=== PATIENT | male | born 1965 | race Caucasian/White ===

== ENCOUNTER 2018-03-03 21:49 | Emergency (ER) | payer OTHER ==
[~2018-03-03] VITALS: Ht 182.9 cm; Wt 100.0 kg
[2018-03-03] MEDS ORDERED: PLEASE ENTER HEIGHT AND WEIGHT MC SCH (22:00)
[2018-03-03] MEDS ORDERED: PLEASE ENTER ALLERGIES MC SCH (22:00)
[2018-03-03] MEDS ORDERED: LEVETIRACETAM 1,000 MG in SODIUM CHLORIDE 0.9% 100 ML IV ONE (22:00)
[2018-03-03 22:03] LABS: BASOPHILS # (AUTO) 0.03 x10^3/uL (0-0.1); BASOPHILS % (AUTO) 0 % (0-1); EOSINOPHILS # (AUTO) 0.06 x10^3/uL (0-0.4); EOSINOPHILS % (AUTO) 1 % (1-7); LYMPHOCYTES # (AUTO) 1.09 x10^3/uL (1-3.4); LYMPHOCYTES % (AUTO) 8 % (22-44); MD NO; MEAN CORPUSCULAR HEMOGLOBIN 32.3 pg (27.5-34.5); MEAN CORPUSCULAR HGB CONC 34.2 g/dL (33.2-36.2); MEAN CORPUSCULAR VOLUME 94.3 fL (81-97); MEAN PLATELET VOLUME 8.2 fL (7.4-10.4); MONOCYTES # (AUTO) 0.82 x10^3/uL (0.2-0.8); MONOCYTES % (AUTO) 6 % (2-9); NEUTROPHILS # (AUTO) 11.39 x10^3/uL (1.8-6.8); NEUTROPHILS % (AUTO) 85 % (42-75); PLATELET COUNT 331 x10^3/uL (130-400); RED BLOOD COUNT 4.98 x10^6/uL (4.38-5.82); RED CELL DISTRIBUTION WIDTH 13.4 % (9.4-14.8)
[2018-03-03 22:16] LABS: ALANINE AMINOTRANSFERASE 27 U/L (12-78); ALBUMIN 4.3 g/dL (3.4-5.0); ANION GAP 9 mmol/L (5-15); CHLORIDE 106 mmol/L (98-107); CREATININE 0.97 mg/dL (0.7-1.3)
[2018-03-03 22:18] LABS: ALKALINE PHOSPHATASE 82 U/L (45-117); BILIRUBIN,TOTAL 1.1 mg/dL (0.2-1.0); TOTAL PROTEIN 7.6 g/dL (6.4-8.2)
[2018-03-03 23:00] VITALS: BP 138/95
== END 2018-03-03 23:27 | disposition home or self-care (01) ==
LOC: ED 23:00
DX: G40.409 Other generalized epilepsy and epileptic syndromes, not intractable, without status epilepticus (principal); Z72.9 Problem related to lifestyle, unspecified; F15.10 Other stimulant abuse, uncomplicated; F10.10 Alcohol abuse, uncomplicated; I10 Essential (primary) hypertension
CPT/HCPCS: 36415; 80053; 80307; 85025; 93005; 96365; 99284; J1953

== ENCOUNTER 2019-06-17 03:08 | Emergency (ER) | payer SELFPAY ==
[2019-06-17] MEDS ORDERED: PLEASE ENTER ALLERGIES MC SCH (03:30)
[2019-06-17] MEDS ORDERED: SODIUM CHLORIDE FLUSH 10ML SYR IVF ONE (03:30)
[2019-06-17] MEDS ORDERED: SODIUM CHLORIDE 0.9% 1,000ML IVBOLUS ONE (03:30)
[2019-06-17] MEDS ORDERED: LORazepam 2 MG/ML, 1ML IVPush ONE (03:30)
[2019-06-17 03:36] LABS: BASOPHILS # (AUTO) 0.07 x10^3/uL (0-0.1); BASOPHILS % (AUTO) 1 % (0-1); EOSINOPHILS # (AUTO) 0.27 x10^3/uL (0-0.4); EOSINOPHILS % (AUTO) 2 % (1-7); LYMPHOCYTES # (AUTO) 2.17 x10^3/uL (1-3.4); LYMPHOCYTES % (AUTO) 14 % (22-44); MD NO; MEAN CORPUSCULAR HEMOGLOBIN 31.7 pg (27.5-34.5); MEAN CORPUSCULAR VOLUME 96.1 fL (81-97); MONOCYTES # (AUTO) 0.88 x10^3/uL (0.2-0.8); MONOCYTES % (AUTO) 6 % (2-9); NEUTROPHILS # (AUTO) 12.55 x10^3/uL (1.8-6.8); NEUTROPHILS % (AUTO) 79 % (42-75); PLATELET COUNT 433 x10^3/uL (130-400); RED CELL DISTRIBUTION WIDTH 14.5 % (9.4-14.8)
[2019-06-17 03:45] LABS: ALANINE AMINOTRANSFERASE 26 U/L (12-78); ALBUMIN 4.2 g/dL (3.4-5.0); ANION GAP 22 mmol/L (5-15); CALCIUM 8.7 mg/dL (8.5-10.1); CHLORIDE 105 mmol/L (98-107); CREATININE 1.15 mg/dL (0.7-1.3); SALICYLATE LEVEL 4.5 mg/dL (2.8-20.0)
[2019-06-17 03:48] LABS: ALKALINE PHOSPHATASE 143 U/L (45-117); BILIRUBIN,TOTAL 0.9 mg/dL (0.2-1.0)
[2019-06-17] MEDS ORDERED: LORazepam 2 MG/ML, 1ML ONE (03:52)
--- NOTE | 2019-06-17 04:21 | NUR ---
Patient brought in by EMS, patient was found down at the [facility] in [place]. EMS received report that patient had a 5 second seizure. En route patient became more alert, but was never able to answer questions clearly. At bedside patient able to state first name, unclearly. Patient responded innappropriately to most questions with grunts. Patient transferred into [facility] without event. As Rn was getting patient attached to the monitor the provider arrived at the bedside. Patient yelled for a moment, became bright red and arms extended. Patient attached to a monitor, SpO2 around 40%. Provider provided jaw thrust and RN provided suction and oxygen maxed out. 4 mg of midazolam was administered by paramedics at bedside. patient became unconscious soon after, oxygen via nasal cannula replaced with simple facemask. Orders placed by provider, RN placed pads on rails for seizure precautions. Radiology central sterile supply technician to bedside, patient transported out of room for computed tomography scan of the head. On return RN returned to the bedside, adminstered iv fluid bolus and medication. Patient's straight catheterized for urine drug sample and hand carried to laboratory. Now waiting for CT image read, blood work and urine drug screen to result.
[2019-06-17 04:34] LABS: AMPHETAMINE SCREEN, URINE Positive (Negative); BARBITURATE SCREEN, URINE Negative (Negative); BENZODIAZEPINE SCREEN, URINE Positive (Negative); CANNABINOID SCREEN, URINE Negative (Negative); COCAINE SCREEN, URINE Negative (Negative); METHADONE SCREEN, URINE Negative (Negative); OPIATE SCREEN, URINE Negative (Negative)
--- NOTE | 2019-06-17 06:06 | NUR ---
Patient no new event, still unconsciousness, withdraws from pain. Vitals remain stable. Patient oxygen requirements improving, titrated down to 6 liters per minute. Awaiting to metabolize.
[2019-06-17 06:53] VITALS: BP 120/76
--- NOTE | 2019-06-17 07:02 | NUR ---
REPORT RECIEVED, ASSUMED CARE OF PT. PT RESTING ON GURNEY, AWAKES TO VERBAL STIM. PT STATES NAME, . PT AOX4. DISCUSSED DC WITH PT.
--- NOTE | 2019-06-17 07:32 | NUR ---
PT ASKING THIS RN IF HE HAD A SEIZURE D/T ETOH INTAKE, PT NEGATIVE PHANI. WHEN ASKED IF HE HAS HAD SEIZURES BEFORE, PT STATES HE THINKS HE HASTAKEN KEKEVINRA IN THE PAST, HAS NOT BEEN ON THE MEDICATION FOR SEVERAL WEEKS. REGISTRATION GIVEN PT NAME AND . WILL HOLD OFF ON DC AT THIS TIME TO ATTEMPT TO LOOK AT PAST RECORDS. STARCH TREATING ASSISTANT AWARE
--- NOTE | 2019-06-17 08:24 | NUR ---
PT NOTED NOT IN RM AT THIS TIME. SWEATER IN RM HOWEVER ALL OTHER BELONGINGS NOT IN RM. PT WITH PIV X2 IN, APPEARS PT ELOPED, MAY HAVE GONE OUTSIDE TO SMOKE. SECURITY CALLED TO HELP LOCATE PT IF JUST OUTSIDE
--- NOTE | 2019-06-17 09:28 | NUR ---
CATALYST OPERATOR: DEANNE DISPATCH NOTIFIED OF PT LEAVING WITH PIV IN PLACE.
== END 2019-06-17 08:59 | disposition home or self-care (01) ==
LOC: EDBD → MERGE 03:08 → ED 08:53
DX: G40.409 Other generalized epilepsy and epileptic syndromes, not intractable, without status epilepticus (principal); F15.129 Other stimulant abuse with intoxication, unspecified; Z72.9 Problem related to lifestyle, unspecified; R00.0 Tachycardia, unspecified
CPT/HCPCS: 36415; 70450; 71045; 80053; 80307; 85025; 93005; 96361; 96374; 99285; J2060; J7030

== ENCOUNTER 2019-06-17 12:54 | Emergency (ER) | payer SELFPAY ==
[~2019-06-17] VITALS: Ht 182.9 cm; Wt 87.7 kg
[2019-06-17 12:57] VITALS: BP 120/90
== END 2019-06-17 16:18 | disposition home or self-care (01) ==
LOC: ED 13:54
DX: S50.01XA Contusion of right elbow, initial encounter (principal); M25.511 Pain in right shoulder; G40.309 Generalized idiopathic epilepsy and epileptic syndromes, not intractable, without status epilepticus; K21.9 Gastro-esophageal reflux disease without esophagitis; I10 Essential (primary) hypertension; Z76.0 Encounter for issue of repeat prescription; X58.XXXA Exposure to other specified factors, initial encounter; Y93.89 Activity, other specified; Y92.89 Other specified places as the place of occurrence of the external cause; Y99.8 Other external cause status
CPT/HCPCS: 93005; 99284

== ENCOUNTER 2019-08-04 09:07 | Emergency (ER) | payer OTHER ==
[~2019-08-04] VITALS: Ht 182.9 cm; Wt 88.9 kg
--- NOTE | 2019-08-04 09:45 | NUR ---
PT REPSONSIVE TO PAINFUL STIMULI, COMPLIANT WITH ROLLING TO SIDE TO SLEEP IN RECOVERY POSITION. FRIEND AT BEDSIDE, PT CONNECTED TO FOOD SAFETY FIELD SPECIALIST, BP CUFF AND O2. EYES CLOSED, RESPIRATIONS EVEN AND UNLABORED, NO SIGNS OF DISTRESS. WILL CONTINUE TO MONITOR.
[2019-08-04 10:26] LABS: BASOPHILS # (AUTO) 0.04 x10^3/uL (0-0.1); BASOPHILS % (AUTO) 1 % (0-1); EOSINOPHILS # (AUTO) 0.03 x10^3/uL (0-0.4); EOSINOPHILS % (AUTO) 1 % (1-7); LYMPHOCYTES # (AUTO) 0.69 x10^3/uL (1-3.4); LYMPHOCYTES % (AUTO) 10 % (22-44); MD NO; MEAN CORPUSCULAR HEMOGLOBIN 32.8 pg (27.5-34.5); MEAN CORPUSCULAR HGB CONC 33.9 g/dL (33.2-36.2); MEAN CORPUSCULAR VOLUME 96.7 fL (81-97); MEAN PLATELET VOLUME 7.2 fL (7.4-10.4); MONOCYTES # (AUTO) 0.36 x10^3/uL (0.2-0.8); MONOCYTES % (AUTO) 5 % (2-9); NEUTROPHILS # (AUTO) 5.94 x10^3/uL (1.8-6.8); NEUTROPHILS % (AUTO) 84 % (42-75); PLATELET COUNT 283 x10^3/uL (130-400); RED BLOOD COUNT 3.86 x10^6/uL (4.38-5.82); RED CELL DISTRIBUTION WIDTH 16.8 % (9.4-14.8)
[2019-08-04 10:36] LABS: ALANINE AMINOTRANSFERASE 21 U/L (12-78); ALBUMIN 3.2 g/dL (3.4-5.0); ANION GAP 10 mmol/L (5-15); CALCIUM 7.9 mg/dL (8.5-10.1); CHLORIDE 108 mmol/L (98-107); CREATININE 0.58 mg/dL (0.7-1.3)
[2019-08-04 10:38] LABS: ALKALINE PHOSPHATASE 124 U/L (45-117); BILIRUBIN,TOTAL 0.5 mg/dL (0.2-1.0); TOTAL PROTEIN 6.6 g/dL (6.4-8.2)
--- NOTE | 2019-08-04 10:49 | NUR ---
PT TO IMAGING.
[2019-08-04 11:26] LABS: AMPHETAMINE SCREEN, URINE Negative (Negative); BARBITURATE SCREEN, URINE Negative (Negative); BENZODIAZEPINE SCREEN, URINE Positive (Negative); CANNABINOID SCREEN, URINE Negative (Negative); COCAINE SCREEN, URINE Negative (Negative); METHADONE SCREEN, URINE Negative (Negative); OPIATE SCREEN, URINE Negative (Negative)
--- NOTE | 2019-08-04 11:52 | NUR ---
PT RESPONSIVE TO PAINFUL STIMULI, RESPIRATIONS EVEN AND UNLABORED, SNORING HEARD.
--- NOTE | 2019-08-04 12:31 | NUR ---
TASK RN: ATTEMPTED TO ROUSE PATIENT FOR ROAD TEST- PATIENT STILL QUITE DROWSY. ONLY RESPONSIVE TO PAINFUL STIMULI, BUT PROTECTING AIRWAY W/OUT DIFFICULTY & VSS (UNABLE TO DISCHARGE AT THIS TIME)
--- NOTE | 2019-08-04 13:22 | NUR ---
BREAK NOTE FOR RN: PT LAYING BACK IN BED WITH EYES CLOSED. RESPIRATIONS EVEN AND UNLABORED ON RA. SIDE RAILS UP. NAD NOTED AT THIS TIME.
--- NOTE | 2019-08-04 13:58 | NUR ---
BREAK NOTE: PT ASKS FOR SECOND BLANKET. NAD NOTED AT THIS TIME.
[2019-08-04 14:08] VITALS: BP 125/75
== END 2019-08-04 14:42 | disposition home or self-care (01) ==
LOC: ED 09:57
DX: F10.121 Alcohol abuse with intoxication delirium (principal); Z59.0 Homelessness; Y90.9 Presence of alcohol in blood, level not specified
CPT/HCPCS: 36415; 70450; 80053; 80307; 85025; 99285

== ENCOUNTER 2020-01-04 03:37 | Inpatient (IN) | payer MEDICAID, OTHER ==
[~2020-01-04] VITALS: Ht 182.9 cm; Wt 72.0 kg
--- NOTE | 2020-01-04 03:46 | NUR ---
WARM BLANKETS AND SPRITE GIVEN TO PT.
--- NOTE | 2020-01-04 04:04 | NUR ---
PT TO CT VIA WHEELCHAIR, ALREADY HAD X RAY. INTOXICATED BUT COOPERATIVE, FOLLOWS COMMANDS, A AND O TIMES 3
--- NOTE | 2020-01-04 04:15 | NUR ---
PT EATING COOKIES AND DRINKING SPRITE, INTOXICATED BUT QUITE PLEASANT
[2020-01-04] MEDS ORDERED: SODIUM CHLORIDE FLUSH 10ML SYR IVF ONE (05:00)
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
--- NOTE | 2020-01-04 05:05 | NUR ---
TO BART, HOB 30 DEGREES, NEURO INTACT, DENIES HEADACHE CURRENTLY
--- NOTE | 2020-01-04 05:10 | NUR ---
PATIENT MOVED TO ROOM. PER RADIOLOGY, HE HAS A SUBDURAL HEMATOMA. HE CURRENTLY DENIES ANY COMPLAINTS. NEURO INTACT. WILL CONTINUE TO MONITOR.
[2020-01-04 05:46] LABS: BASOPHILS # (AUTO) 0.04 x10^3/uL (0-0.1); BASOPHILS % (AUTO) 0 % (0-1); EOSINOPHILS # (AUTO) 0.01 x10^3/uL (0-0.4); EOSINOPHILS % (AUTO) 0 % (1-7); LYMPHOCYTES # (AUTO) 0.97 x10^3/uL (1-3.4); LYMPHOCYTES % (AUTO) 9 % (22-44); MD NO; MEAN CORPUSCULAR HEMOGLOBIN 31.2 pg (27.5-34.5); MEAN CORPUSCULAR HGB CONC 31.7 g/dL (33.2-36.2); MEAN PLATELET VOLUME 7.3 fL (7.4-10.4); MONOCYTES # (AUTO) 0.47 x10^3/uL (0.2-0.8); MONOCYTES % (AUTO) 5 % (2-9); NEUTROPHILS # (AUTO) 9.07 x10^3/uL (1.8-6.8); NEUTROPHILS % (AUTO) 86 % (42-75); PLATELET COUNT 472 x10^3/uL (130-400); RED BLOOD COUNT 3.86 x10^6/uL (4.38-5.82); RED CELL DISTRIBUTION WIDTH 15.6 % (9.4-14.8)
[2020-01-04 05:48] LABS: ALANINE AMINOTRANSFERASE 32 U/L (12-78); ALBUMIN 3.6 g/dL (3.4-5.0); ANION GAP 7 mmol/L (5-15); CHLORIDE 110 mmol/L (98-107); CREATININE 0.59 mg/dL (0.7-1.3)
[2020-01-04 05:50] LABS: ALKALINE PHOSPHATASE 110 U/L (45-117); BILIRUBIN,TOTAL 0.2 mg/dL (0.2-1.0); TOTAL PROTEIN 7.3 g/dL (6.4-8.2)
[2020-01-04 05:51] LABS: INTERNATIONAL NORMALIZED RATIO 1.04 (0.93-1.1); PROTHROMBIN TIME 10.7 Seconds (9.6-11.5)
--- NOTE | 2020-01-04 06:50 | NUR ---
REPORT FROM KENNETH. DANELLE JACOBS.
--- NOTE | 2020-01-04 06:58 | NUR ---
PATIENT IN BED, RAILS UP. WAKES EASILY AND STATES NO PAIN THEN BACK TO SLEEP. WILL MONITOR.
--- NOTE | 2020-01-04 08:33 | NUR ---
PATIENT SPLINTED LEFT ARM. HE IS AOX4 EXCEPT DOES NOT RECALL THE EVENTS OF LAST NIGHT. HE IS CALM, IN BED RAILS UP.
[2020-01-04] MEDS ORDERED: OMEP20TA62 PO (08:35)
[2020-01-04] MEDS ORDERED: LISI-167 PO (08:35)
--- NOTE | 2020-01-04 10:11 | NUR ---
report to Cindy. patient in bed sleeping, wakes easily to verbal stimulation.
[2020-01-04 10:32] VITALS: BP 131/84
[2020-01-04] MEDS ORDERED: LORazepam 1MG TABLET PO PRN ×2 (11:30)
[2020-01-04] MEDS ORDERED: LORazepam 2 MG/ML, 1ML IV PRN ×5 (11:30)
[2020-01-04] MEDS ORDERED: LORazepam 0.5MG TABLET PO PRN (11:30)
[2020-01-04] MEDS ORDERED: ENALAPRILAT 1.25 MG/ML, 2ML IVPush PRN (12:00)
[2020-01-04] MEDS ORDERED: LABETALOL 5MG/ML, 20ML IVPush PRN (12:00)
[2020-01-04] MEDS ORDERED: ONDANSETRON ODT 4 MG PO PRN (12:00)
[2020-01-04] MEDS ORDERED: ONDANSETRON 2MG/ML, 2ML IVPush PRN (12:00)
[2020-01-04 12:45] VITALS: BP 138/72
[2020-01-04] MEDS: ACETAMINOPHEN 325 MG TABLET PO PRN ×2 (12:57→19:51)
[2020-01-04] MEDS: LISINOPRIL 10 MG TABLET PO SCH (12:57)
[2020-01-04] MEDS: POTASSIUM CHLORIDE 20 MEQ, MAGNESIUM SULFATE 2 GM, THIAMINE 200 MG, MVI ADULT 10 ML, FO... IV SCH ×2 (12:57→21:51)
[2020-01-04] MEDS: HYDROcodone/APAP 5/325 TABLET PO PRN (14:17)
[2020-01-04] MEDS ORDERED: NICOTINE 21 MG/24 HR PATCH.TD24 TD ONE (14:30)
[2020-01-04] MEDS: LORazepam 1MG TABLET PO PRN (18:42)
[2020-01-04 19:25] VITALS: BP 151/84
[2020-01-05 00:15] VITALS: BP 145/81
[2020-01-05] MEDS: HYDROcodone/APAP 5/325 TABLET PO PRN ×3 (01:30→16:29)
[2020-01-05 05:12] LABS: ANION GAP 5 mmol/L (5-15); CALCIUM 7.9 mg/dL (8.5-10.1); CHLORIDE 110 mmol/L (98-107)
[2020-01-05] MEDS: OMEPRAZOLE 20 MG CAPSULE.DR PO SCH (05:25)
[2020-01-05 07:32] VITALS: BP 142/79
[2020-01-05] MEDS: LISINOPRIL 10 MG TABLET PO SCH (08:21)
[2020-01-05] MEDS: NICOTINE 21 MG/24 HR PATCH.TD24 TD SCH (08:22)
[2020-01-05] MEDS: LORazepam 1MG TABLET PO PRN ×3 (08:22→16:30)
[2020-01-05] MEDS: POTASSIUM CHLORIDE 20 MEQ, MAGNESIUM SULFATE 2 GM, THIAMINE 200 MG, MVI ADULT 10 ML, FO... IV SCH (10:08)
[2020-01-05] MEDS: OXYcodone IR 5MG TABLET PO PRN ×2 (12:20→18:14)
[2020-01-05 12:29] VITALS: BP 143/82
[2020-01-05 19:08] VITALS: BP 112/66
[2020-01-06] MEDS: LORazepam 1MG TABLET PO PRN ×2 (00:01→11:14)
[2020-01-06] MEDS: HYDROcodone/APAP 5/325 TABLET PO PRN ×2 (00:01→06:18)
[2020-01-06 00:09] VITALS: BP 135/85
[2020-01-06] MEDS: OMEPRAZOLE 20 MG CAPSULE.DR PO SCH (06:14)
[2020-01-06 07:17] VITALS: BP 118/82
[2020-01-06] MEDS: NICOTINE 21 MG/24 HR PATCH.TD24 TD SCH (08:58)
[2020-01-06] MEDS: LISINOPRIL 10 MG TABLET PO SCH (08:58)
[2020-01-06] MEDS: POTASSIUM CHLORIDE 20 MEQ, MAGNESIUM SULFATE 2 GM, THIAMINE 200 MG, MVI ADULT 10 ML, FO... IV SCH (11:03)
[2020-01-06 12:24] VITALS: BP 137/85
[2020-01-06] MEDS ORDERED: ACET500T64 PO (13:22)
== END 2020-01-06 14:18 | disposition home or self-care (01) | DRG 83 ==
LOC: ED 08:21 → EDIP 08:37 → 5SO 10:25 → DCLOUNGE 01-06 14:09
PROVIDERS: ADMIT Internal Medicine; ATTEND Internal Medicine
DX: S06.5X9A Traumatic subdural hemorrhage with loss of consciousness of unspecified duration, initial encounter (principal); M25.022 Hemarthrosis, left elbow; F10.229 Alcohol dependence with intoxication, unspecified; Y90.9 Presence of alcohol in blood, level not specified; I10 Essential (primary) hypertension; S00.212A Abrasion of left eyelid and periocular area, initial encounter; K21.9 Gastro-esophageal reflux disease without esophagitis; X58.XXXA Exposure to other specified factors, initial encounter; G40.909 Epilepsy, unspecified, not intractable, without status epilepticus
CPT/HCPCS: 36415; 71101; 73080; 96374; 99285; J7042; 70450; 80048; 80053; 82962; 85025; 85610; 85730; G0378; J3411; J3475; J3480; J2060

== ENCOUNTER 2020-08-23 22:58 | Emergency (ER) | payer MEDICAID ==
[~2020-08-23] VITALS: Ht 182.9 cm; Wt 75.0 kg
[~2020-08-23 22:58] MED LIST: ACET500T64 PO; LISI-167 PO; OMEP20TA62 PO
[2020-08-23 23:07] VITALS: BP 136/94
[2020-08-23] MEDS ORDERED: THIAMINE 100MG TABLET ONE (23:10)
[2020-08-23] MEDS ORDERED: LIDOCAINE-MPF 1%, 5ML ONE (23:10)
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
--- NOTE | 2020-08-23 23:20 | NUR ---
TO CT scan Provider to bedside- head laceration stapled without difficulty remains without neuro deficits
--- NOTE | 2020-08-23 23:27 | NUR ---
BREAK RN: PT. HAS BEEN TO CT AND IS NOW BACK IN ROOM. TECH AT BS FOR IRRIGATION OF WOUND.
[2020-08-23] MEDS ORDERED: THIAMINE 100MG TABLET PO ONE (23:30)
[2020-08-23] MEDS ORDERED: LIDOCAINE-MPF 1%, 5ML INFIL ONE (23:30)
[2020-08-23] MEDS ORDERED: NEOSPORIN OINT. PKT 1 PACKET ONE (23:31)
== END 2020-08-24 01:12 | disposition home or self-care (01) ==
LOC: ED 08-24 00:58
DX: S06.0X0A Concussion without loss of consciousness, initial encounter (principal); S01.01XA Laceration without foreign body of scalp, initial encounter; M54.2 Cervicalgia; F10.129 Alcohol abuse with intoxication, unspecified; I10 Essential (primary) hypertension; W18.30XA Fall on same level, unspecified, initial encounter; Y93.89 Activity, other specified; Y92.410 Unspecified street and highway as the place of occurrence of the external cause; Y99.8 Other external cause status
CPT/HCPCS: 12032; 70450; 72125; 99285

== ENCOUNTER 2020-08-27 02:35 | Inpatient (IN) | payer MEDICAID, OTHER ==
[~2020-08-27] VITALS: Ht 177.8 cm; Wt 87.5 kg
--- NOTE | 2020-08-27 02:40 | NUR ---
BIB BY CHEVY FROM [facility]. PATIENT FOUND DOWN NEXT TO POOL OF COFFEE GROUND EMESIS, ALSO WITH LARGE HEMATOMA TO FOREHEAD. ON ARRIVAL APPEARS TO BE POST ICTAL (DROWSY/PANTS SOAKED WITH URINE) PATIENT KNOWN HEAVY DRINKER & ALSO WITH HX OF ETOH ABUSE PLACED IN C-COLLAR NO FOCAL DEFICITS VSS
[2020-08-27] MEDS ORDERED: LORazepam 2 MG/ML, 1ML ONE ×3 (02:48→03:15)
--- NOTE | 2020-08-27 02:50 | NUR ---
DESPITE PRE-MEDICATION WITH IV ATIVAN 1MG (PRIOR TO CT) PATIENT HAD MASSIVE GRAND MAL SEIZURE IN CT SCAN AFTER CT HEAD/NECK COMPLETED. GIVEN SECOND MG THEN. SEIZURE CONTINUED WITH. REBECA OBTAINED A SECOND 2MG-GIVEN IV PUSH (TOTAL OF 4MG) SEIZURE LASTED APPROXIMATELY 2 MINUTES
[2020-08-27] MEDS: LORazepam 2 MG/ML, 1ML IVPush PRN ×3 (02:52→03:45)
[2020-08-27] MEDS ORDERED: ONDANSETRON 2MG/ML, 2ML IVPush ONE (03:00)
[2020-08-27] MEDS ORDERED: MAGNESIUM SULFATE 1 GM, THIAMINE 100 MG, FOLIC ACID 1 MG, MVI ADULT 10 ML in SODIUM CHL... IV ONE (03:00)
[2020-08-27] MEDS ORDERED: SODIUM CHLORIDE 0.9% 1,000ML IVBOLUS ONE ×3 (03:00→18:30)
[2020-08-27] MEDS ORDERED: SODIUM CHLORIDE FLUSH 10ML SYR IVF ONE (03:00)
[2020-08-27 03:11] LABS: BASOPHILS % (AUTO) 0 % (0-1); EOSINOPHILS % (AUTO) 0 % (1-7); LYMPHOCYTES % (AUTO) 8 % (22-44); MEAN CORPUSCULAR HGB CONC 33.7 g/dL (33.2-36.2); MEAN PLATELET VOLUME 8.6 fL (7.4-10.4); MONOCYTES % (AUTO) 7 % (2-9); NEUTROPHILS % (AUTO) 86 % (42-75); PLATELET COUNT 129 x10^3/uL (130-400); RED BLOOD COUNT 5.12 x10^6/uL (4.38-5.82); RED CELL DISTRIBUTION WIDTH 15.6 % (9.4-14.8)
[2020-08-27] MEDS ORDERED: ONDANSETRON 2MG/ML, 2ML ONE (03:15)
--- NOTE | 2020-08-27 03:21 | NUR ---
PATIENT CONTINUES TO DEMONSTRATE SEIZURE LIKE MOTOR ACTIVITY. ERP TO BEDSIDE-PLAN TO INTUBATE
[2020-08-27 03:25] LABS: ALANINE AMINOTRANSFERASE 70 U/L (12-78); ALBUMIN 4.4 g/dL (3.4-5.0); ANION GAP 22 mmol/L (5-15); CALCIUM 8.7 mg/dL (8.5-10.1); CHLORIDE 99 mmol/L (98-107); CREATININE 1.19 mg/dL (0.7-1.3)
[2020-08-27 03:27] LABS: ALKALINE PHOSPHATASE 124 U/L (45-117); BILIRUBIN,TOTAL 1.3 mg/dL (0.2-1.0); TOTAL PROTEIN 7.9 g/dL (6.4-8.2)
--- NOTE | 2020-08-27 03:29 | NUR ---
0328-20MG OF ETOMIDATE 0330-140MG OF SUCCINYCHOLINE
[2020-08-27] MEDS ORDERED: LEVETIRACETAM 1,000 MG in SODIUM CHLORIDE 0.9% 100 ML IV ONE (03:30)
--- NOTE | 2020-08-27 03:37 | NUR ---
POST INTUBATION PATIENT BREATHING OVER VENT/BITING/MOVING ERP ATTEMPTING SUTURE LACERATED TONGUE MEDICATED WITH 2MG OF ATIVAN, THEN 5MG OF VERSED, THEN 10MG OF VECURONIUM
[2020-08-27 03:39] LABS: MD NO
--- NOTE | 2020-08-27 03:51 | NUR ---
7.5-24 AT THE TEETH AC/VC+ RATE OF 18, VOLUME OF 500ML, PEEP OF 5, FI02 OF 60%
[2020-08-27] MEDS ORDERED: ETOMIDATE 20 MG/10 ML IVPush ONE (04:00)
[2020-08-27] MEDS: PROPOFOL 100 ML IV PRN ×6 (04:00→20:01)
[2020-08-27] MEDS ORDERED: VECURONIUM 10 MG IVPush ONE (04:00)
[2020-08-27] MEDS ORDERED: SUCCINYLCHOLINE 20 MG/ML, 10ML IVPush ONE (04:00)
[2020-08-27] MEDS ORDERED: MIDAZOLAM 1 MG/ML, 5ML IVPush ONE ×2 (04:00→04:30)
[2020-08-27] MEDS ORDERED: PROPOFOL 100 ML IV ONE ×2 (04:42→07:45)
[2020-08-27] MEDS ORDERED: CITA20TA9 PO (04:57)
[2020-08-27] MEDS ORDERED: MIRT7.5T8 PO (04:57)
[2020-08-27] MEDS ORDERED: POTASSIUM CHLORIDE 20 MEQ PACKET PO/NG ONE (05:00)
--- NOTE | 2020-08-27 05:03 | NUR ---
RT TO BEDSIDE-FI02 FROM 60->80%
[2020-08-27 05:13] LABS: INTERNATIONAL NORMALIZED RATIO 1.04 (0.93-1.1); PROTHROMBIN TIME 11.1 Seconds (9.6-11.5)
--- NOTE | 2020-08-27 05:15 | NUR ---
BEDSIDE REPORT FROM HIRAM KNOWLES
--- NOTE | 2020-08-27 05:30 | NUR ---
pt placed on contact precautions d/t scabies infestation per paperwork that came from custodial
[2020-08-27] MEDS: MIDAZOLAM HCL 50 MG in SODIUM CHLORIDE 0.9% 40 ML IV PRN ×4 (05:44→22:40)
--- NOTE | 2020-08-27 05:47 | NUR ---
PT RESTING ON SALINAS ARRIAGACFLORI. VERSED DRIP STATED TO MAINTAIN SEDATION.
--- NOTE | 2020-08-27 06:11 | NUR ---
rt at bedside for oral care
[2020-08-27 06:19] LABS: AMPHETAMINE SCREEN, URINE Negative (Negative); BARBITURATE SCREEN, URINE Negative (Negative); BENZODIAZEPINE SCREEN, URINE Positive (Negative); CANNABINOID SCREEN, URINE Negative (Negative); COCAINE SCREEN, URINE Negative (Negative); METHADONE SCREEN, URINE Negative (Negative); OPIATE SCREEN, URINE Negative (Negative)
[2020-08-27] MEDS ORDERED: GABA400C PO (06:23)
[2020-08-27] MEDS ORDERED: FAMO20TA7 PO (06:23)
[2020-08-27] MEDS ORDERED: ASPI-963 PO (06:23)
[2020-08-27] MEDS ORDERED: ATOR40TA78 PO (06:23)
[2020-08-27] MEDS ORDERED: LEVE500T8 PO (06:23)
[2020-08-27] MEDS ORDERED: PANTOPRAZOLE 40 MG IV ONE (06:41)
[2020-08-27] MEDS: PANTOPRAZOLE 40 MG IV IVPush SCH (06:43)
--- NOTE | 2020-08-27 06:48 | NUR ---
pt resting on gurney. comfortably sedated. law enforcement at bedside.
--- NOTE | 2020-08-27 06:56 | NUR ---
report to herb delgado
--- NOTE | 2020-08-27 07:00 | NUR ---
REPORT RECEIVED, CARE ASSUMED. PT SR PER MONITOR. AUTO BP AND PULSE OX, END TIDAL MONITORING IN PLACE. PT ON VENTILATOR AC 18 TV 500 PEEP 5 80%. 7.5 ETT APPROX 24 LIP. NG RIGHT NARE WITH SOME BROWNISH/BLOODY DRAINAGE. GARNETT TO DD, SMALL AMT OF CLEAR YELLOW URINE. PT WITH PROPOFOL AT 50MCG/KG/MIN, VERSED 1MG/HR, BANANA BAG INFUSING AT 125 PER ORDER
--- NOTE | 2020-08-27 07:15 | NUR ---
PER CUSTOMER PRICING MANAGER PT RECIEVED SCABIES CREAM AT APPROX 1630 YESTERDAY. REPORT CALLED TO MAINE GANDHI. POC DISCUSSED.
[2020-08-27] MEDS ORDERED: POTASSIUM CHLORIDE 20 MEQ PACKET ONE (07:19)
[2020-08-27] MEDS: POTASSIUM CHLORIDE 20 MEQ, MAGNESIUM SULFATE 1 GM, THIAMINE 200 MG, FOLIC ACID 1 MG, MV... IV SCH (08:00)
[2020-08-27] MEDS ORDERED: FENTANYL PF 100 MCG/2ML IVPush PRN (09:00)
[2020-08-27] MEDS ORDERED: PHARMACY MAY ADJ FOR RENAL FX MC SCH (09:00)
[2020-08-27] MEDS ORDERED: THIAMINE 100MG TABLET PO/NG SCH (09:00)
[2020-08-27] MEDS ORDERED: LIDOCAINE-MPF 1%, 2ML ENDO PRN (09:00)
[2020-08-27 10:10] VITALS: BP 113/67
[2020-08-27 10:17] LABS: MICROSCOPIC INDICATED
[2020-08-27] MEDS: HEPARIN 5,000 UNITS/ML, 1ML SQ SCH ×2 (10:38→18:11)
[2020-08-27] MEDS: CEFTRIAXONE 1,000 MG in DEXTROSE 5% 50 ML IVPB SCH (10:38)
[2020-08-27] MEDS: METRONIDAZOLE PMX 500MG/100ML 100 ML IV SCH ×2 (10:38→18:11)
[2020-08-27] MEDS ORDERED: SODIUM CHLORIDE 0.9%, 500ML IVBOLUS ONE (11:30)
[2020-08-27] MEDS ORDERED: MIDAZOLAM 1 MG/ML, 5ML ONE (12:39)
[2020-08-27] MEDS ORDERED: SUCCINYLCHOLINE 20 MG/ML, 10ML ONE (12:39)
[2020-08-27] MEDS ORDERED: ETOMIDATE 20 MG/10 ML ONE (12:39)
[2020-08-27] MEDS ORDERED: PROPOFOL 10 MG/ML, 100ML IV ONE (12:39)
[2020-08-27] MEDS ORDERED: VECURONIUM 10 MG ONE (12:39)
[2020-08-27] MEDS: SODIUM CHLORIDE 0.9% 1,000 ML IV SCH (18:17)
[2020-08-28] MEDS: PROPOFOL 100 ML IV PRN ×6 (01:11→20:58)
[2020-08-28] MEDS: HEPARIN 5,000 UNITS/ML, 1ML SQ SCH ×3 (01:11→17:14)
[2020-08-28] MEDS: METRONIDAZOLE PMX 500MG/100ML 100 ML IV SCH ×3 (01:11→17:56)
[2020-08-28 04:36] LABS: BASOPHILS % (AUTO) 0 % (0-1); EOSINOPHILS % (AUTO) 1 % (1-7); LYMPHOCYTES % (AUTO) 10 % (22-44); MEAN CORPUSCULAR HEMOGLOBIN 30.2 pg (27.5-34.5); MEAN CORPUSCULAR HGB CONC 34.2 g/dL (33.2-36.2); MEAN PLATELET VOLUME 8.7 fL (7.4-10.4); MONOCYTES % (AUTO) 6 % (2-9); NEUTROPHILS % (AUTO) 82 % (42-75); PLATELET COUNT 62 x10^3/uL (130-400); RED BLOOD COUNT 3.99 x10^6/uL (4.38-5.82); RED CELL DISTRIBUTION WIDTH 15.8 % (9.4-14.8)
[2020-08-28 04:39] LABS: ANION GAP 8 mmol/L (5-15); CALCIUM 7.6 mg/dL (8.5-10.1); CHLORIDE 111 mmol/L (98-107); CREATININE 1.82 mg/dL (0.7-1.3)
[2020-08-28] MEDS: MIDAZOLAM HCL 50 MG in SODIUM CHLORIDE 0.9% 40 ML IV PRN ×2 (04:39→10:13)
[2020-08-28 04:54] LABS: MD SCAN
[2020-08-28] MEDS: SODIUM CHLORIDE 0.9% 1,000 ML IV SCH ×3 (05:09→22:52)
[2020-08-28] MEDS ORDERED: POTASSIUM CHLORIDE 20 MEQ PACKET PO ONE (07:00)
[2020-08-28] MEDS: POTASSIUM CHLORIDE 20 MEQ, MAGNESIUM SULFATE 1 GM, THIAMINE 200 MG, FOLIC ACID 1 MG, MV... IV SCH (08:56)
[2020-08-28] MEDS: PANTOPRAZOLE 40 MG IV IVPush SCH (09:01)
[2020-08-28] MEDS: CEFTRIAXONE 1,000 MG in DEXTROSE 5% 50 ML IVPB SCH (09:01)
--- NOTE | 2020-08-28 11:02 | NUR ---
TF per RD recs: recommend promote w/ end goal rate of 75 ml/hr (ON propofol) and 85 ml/hr (OFF propofol) Addendum: 08/28/20 at [address] Amended: Links added.
[2020-08-28] MEDS ORDERED: ALBUMIN HUMAN 5% 500 ML IV ONE (14:00)
[2020-08-28] MEDS: MIDAZOLAM HCL 100 MG in SODIUM CHLORIDE 0.9% 80 ML IV PRN (16:20)
[2020-08-29] MEDS: PROPOFOL 100 ML IV PRN ×3 (00:41→06:36)
[2020-08-29] MEDS: HEPARIN 5,000 UNITS/ML, 1ML SQ SCH ×3 (00:41→17:53)
[2020-08-29] MEDS: METRONIDAZOLE PMX 500MG/100ML 100 ML IV SCH ×3 (01:43→17:56)
[2020-08-29] MEDS: MIDAZOLAM HCL 100 MG in SODIUM CHLORIDE 0.9% 80 ML IV PRN (03:14)
[2020-08-29 04:45] LABS: BASOPHILS % (AUTO) 1 % (0-1); EOSINOPHILS % (AUTO) 2 % (1-7); LYMPHOCYTES % (AUTO) 15 % (22-44); MEAN CORPUSCULAR HEMOGLOBIN 30.5 pg (27.5-34.5); MEAN CORPUSCULAR HGB CONC 34.4 g/dL (33.2-36.2); MEAN PLATELET VOLUME 9.6 fL (7.4-10.4); MONOCYTES % (AUTO) 8 % (2-9); NEUTROPHILS % (AUTO) 75 % (42-75); PLATELET COUNT 65 x10^3/uL (130-400); RED BLOOD COUNT 3.77 x10^6/uL (4.38-5.82); RED CELL DISTRIBUTION WIDTH 16.1 % (9.4-14.8)
[2020-08-29 04:46] LABS: MD NO
[2020-08-29 04:57] LABS: ANION GAP 6 mmol/L (5-15); CALCIUM 7.8 mg/dL (8.5-10.1); CHLORIDE 117 mmol/L (98-107); CREATININE 1.65 mg/dL (0.7-1.3)
[2020-08-29] MEDS: CEFTRIAXONE 1,000 MG in DEXTROSE 5% 50 ML IVPB SCH (08:37)
[2020-08-29] MEDS: PANTOPRAZOLE 40 MG IV IVPush SCH (08:37)
[2020-08-29] MEDS: POTASSIUM CHLORIDE 20 MEQ, MAGNESIUM SULFATE 1 GM, THIAMINE 200 MG, FOLIC ACID 1 MG, MV... IV SCH (08:37)
[2020-08-29] MEDS ORDERED: DEXMEDETOMIDINE 200 MCG in SODIUM CHLORIDE 0.9% 48 ML IV PRN (09:00)
[2020-08-29 14:05] VITALS: BP 163/96
[2020-08-29] MEDS ORDERED: NICOTINE 21 MG/24 HR PATCH.TD24 TD SCH (17:30)
[2020-08-29 20:10] VITALS: BP 148/99
[2020-08-29] MEDS: LORazepam 2 MG/ML, 1ML IVPush PRN (23:20)
[2020-08-30] MEDS: HEPARIN 5,000 UNITS/ML, 1ML SQ SCH ×3 (01:56→17:54)
[2020-08-30] MEDS: METRONIDAZOLE PMX 500MG/100ML 100 ML IV SCH ×2 (01:56→10:59)
[2020-08-30 01:59] VITALS: BP 149/85
[2020-08-30] MEDS: LORazepam 2 MG/ML, 1ML IVPush PRN ×2 (05:07→18:25)
[2020-08-30 05:31] LABS: ANION GAP 11 mmol/L (5-15); CALCIUM 8.4 mg/dL (8.5-10.1); CHLORIDE 108 mmol/L (98-107)
[2020-08-30 05:33] LABS: CREATININE 1.13 mg/dL (0.7-1.3)
[2020-08-30 06:35] VITALS: BP 155/90
[2020-08-30] MEDS: POTASSIUM CHLORIDE 20 MEQ, MAGNESIUM SULFATE 1 GM, THIAMINE 200 MG, FOLIC ACID 1 MG, MV... IV SCH (08:51)
[2020-08-30] MEDS: NICOTINE 21 MG/24 HR PATCH.TD24 TD SCH (08:52)
[2020-08-30] MEDS: CHLORDIAZEPOXIDE 25 MG CAPSULE PO PRN ×2 (08:52→16:26)
[2020-08-30] MEDS: CEFTRIAXONE 1,000 MG in DEXTROSE 5% 50 ML IVPB SCH (09:46)
[2020-08-30] MEDS ORDERED: POTASSIUM CHLORIDE 40 MEQ in SODIUM CHLORIDE 0.9% 500 ML IV ONE (10:30)
[2020-08-30 12:36] VITALS: BP 157/87
[2020-08-30] MEDS ORDERED: CALCIUM CARBONATE 500 MG TAB.CHEW PO PRN (16:00)
[2020-08-30] MEDS: metroNIDAZOLE 500 MG TABLET PO SCH ×2 (17:54→21:02)
[2020-08-30 18:26] VITALS: BP 168/94
[2020-08-31 00:21] VITALS: BP 156/88
[2020-08-31] MEDS: LORazepam 2 MG/ML, 1ML IVPush PRN ×3 (00:43→13:05)
[2020-08-31] MEDS: HEPARIN 5,000 UNITS/ML, 1ML SQ SCH ×3 (00:43→16:14)
[2020-08-31 05:23] LABS: BASOPHILS % (AUTO) 1 % (0-1); EOSINOPHILS % (AUTO) 3 % (1-7); LYMPHOCYTES % (AUTO) 22 % (22-44); MEAN CORPUSCULAR HEMOGLOBIN 30.7 pg (27.5-34.5); MEAN CORPUSCULAR HGB CONC 34.9 g/dL (33.2-36.2); MEAN PLATELET VOLUME 8.7 fL (7.4-10.4); MONOCYTES % (AUTO) 14 % (2-9); NEUTROPHILS % (AUTO) 61 % (42-75); PLATELET COUNT 97 x10^3/uL (130-400); RED BLOOD COUNT 4.15 x10^6/uL (4.38-5.82); RED CELL DISTRIBUTION WIDTH 16.2 % (9.4-14.8)
[2020-08-31 05:25] LABS: MD NO
[2020-08-31 05:35] LABS: ALBUMIN 3.3 g/dL (3.4-5.0); ANION GAP 11 mmol/L (5-15); CALCIUM 8.5 mg/dL (8.5-10.1); CHLORIDE 105 mmol/L (98-107)
[2020-08-31 05:39] LABS: ALANINE AMINOTRANSFERASE 36 U/L (12-78); ALKALINE PHOSPHATASE 72 U/L (45-117); BILIRUBIN,TOTAL 0.7 mg/dL (0.2-1.0); CREATININE 0.79 mg/dL (0.7-1.3); TOTAL PROTEIN 6.6 g/dL (6.4-8.2)
[2020-08-31] MEDS: ACETAMINOPHEN 325 MG TABLET PO PRN ×3 (06:53→18:16)
[2020-08-31] MEDS: CHLORDIAZEPOXIDE 25 MG CAPSULE PO PRN (06:53)
[2020-08-31] MEDS: POTASSIUM CHLORIDE 20 MEQ, MAGNESIUM SULFATE 1 GM, THIAMINE 200 MG, FOLIC ACID 1 MG, MV... IV SCH (08:59)
[2020-08-31] MEDS: CEFTRIAXONE 1,000 MG in DEXTROSE 5% 50 ML IVPB SCH (08:59)
[2020-08-31] MEDS: NICOTINE 21 MG/24 HR PATCH.TD24 TD SCH (09:00)
[2020-08-31] MEDS: metroNIDAZOLE 500 MG TABLET PO SCH ×2 (09:00→16:14)
[2020-08-31] MEDS ORDERED: MAGNESIUM SULFATE 3 GM in SODIUM CHLORIDE 0.9% 100 ML IV ONE (10:00)
[2020-08-31] MEDS ORDERED: POTASSIUM CHLORIDE 40 MEQ in SODIUM CHLORIDE 0.9% 500 ML IV ONE (10:00)
[2020-08-31 10:05] VITALS: BP 159/99
[2020-08-31] MEDS ORDERED: POTASSIUM CHLORIDE 20 MEQ TAB.ER.PRT PO ONE (14:00)
[2020-08-31 14:21] VITALS: BP 157/132
[2020-08-31 14:25] VITALS: BP 156/102
[2020-08-31] MEDS: CLINDAMYCIN 300 MG CAPSULE PO SCH ×2 (16:56→22:40)
[2020-08-31 19:02] VITALS: BP 147/92
[2020-09-01 00:16] VITALS: BP 151/91
[2020-09-01] MEDS: HEPARIN 5,000 UNITS/ML, 1ML SQ SCH ×3 (00:16→17:09)
[2020-09-01] MEDS: CHLORDIAZEPOXIDE 25 MG CAPSULE PO PRN (00:16)
[2020-09-01] MEDS ORDERED: MELATONIN 5 MG TABLET PO ONE (02:00)
[2020-09-01] MEDS: ACETAMINOPHEN 325 MG TABLET PO PRN ×3 (02:11→23:17)
[2020-09-01] MEDS: CLINDAMYCIN 300 MG CAPSULE PO SCH ×4 (05:15→23:15)
[2020-09-01 05:59] LABS: BASOPHILS % (AUTO) 1 % (0-1); EOSINOPHILS % (AUTO) 3 % (1-7); LYMPHOCYTES % (AUTO) 23 % (22-44); MD NO; MEAN CORPUSCULAR HEMOGLOBIN 30.1 pg (27.5-34.5); MEAN PLATELET VOLUME 8.2 fL (7.4-10.4); MONOCYTES % (AUTO) 15 % (2-9); NEUTROPHILS % (AUTO) 58 % (42-75); PLATELET COUNT 120 x10^3/uL (130-400); RED BLOOD COUNT 4.06 x10^6/uL (4.38-5.82)
[2020-09-01 06:06] LABS: ALBUMIN 3.4 g/dL (3.4-5.0); ANION GAP 8 mmol/L (5-15); CALCIUM 8.6 mg/dL (8.5-10.1); CHLORIDE 107 mmol/L (98-107)
[2020-09-01 06:12] LABS: ALANINE AMINOTRANSFERASE 34 U/L (12-78); ALKALINE PHOSPHATASE 72 U/L (45-117); BILIRUBIN,TOTAL 0.6 mg/dL (0.2-1.0); CREATININE 0.75 mg/dL (0.7-1.3); TOTAL PROTEIN 6.6 g/dL (6.4-8.2)
[2020-09-01 07:16] VITALS: BP 167/99
[2020-09-01] MEDS: CEFTRIAXONE 1,000 MG in DEXTROSE 5% 50 ML IVPB SCH (09:43)
[2020-09-01] MEDS: NICOTINE 21 MG/24 HR PATCH.TD24 TD SCH (09:44)
[2020-09-01] MEDS: LORazepam 1MG TABLET PO SCH ×3 (13:25→20:35)
[2020-09-01 13:29] VITALS: BP 166/80
[2020-09-01] MEDS ORDERED: LORazepam 1MG TABLET PO PRN (13:30)
[2020-09-01] MEDS ORDERED: POTASSIUM CHLORIDE 20 MEQ TAB.ER.PRT PO ONE (15:00)
[2020-09-01 18:51] VITALS: BP 139/85
[2020-09-02] MEDS: HEPARIN 5,000 UNITS/ML, 1ML SQ SCH ×3 (01:07→17:53)
[2020-09-02 01:20] VITALS: BP 157/82
[2020-09-02] MEDS: CHLORDIAZEPOXIDE 25 MG CAPSULE PO PRN (02:41)
[2020-09-02] MEDS: CLINDAMYCIN 300 MG CAPSULE PO SCH ×4 (05:40→23:52)
[2020-09-02 05:44] LABS: ANION GAP 6 mmol/L (5-15); CALCIUM 8.4 mg/dL (8.5-10.1); CHLORIDE 110 mmol/L (98-107); TRIGLYCERIDES 97 mg/dL (50-200)
[2020-09-02 07:43] VITALS: BP 129/82
[2020-09-02] MEDS: NICOTINE 21 MG/24 HR PATCH.TD24 TD SCH (09:21)
[2020-09-02] MEDS: LORazepam 1MG TABLET PO SCH ×3 (09:21→20:41)
[2020-09-02] MEDS: CEFTRIAXONE 1,000 MG in DEXTROSE 5% 50 ML IVPB SCH (09:22)
[2020-09-02] MEDS: ACETAMINOPHEN 325 MG TABLET PO PRN ×3 (09:47→17:52)
[2020-09-02] MEDS ORDERED: MAGNESIUM SULFATE PMX 2GM/50ML 50 ML IV ONE (12:00)
[2020-09-02 13:28] VITALS: BP 129/79
[2020-09-02 18:50] VITALS: BP 147/93
[2020-09-02] MEDS ORDERED: PANT40GR PO (22:48)
[2020-09-02] MEDS ORDERED: NICO-587 TD (22:48)
[2020-09-02] MEDS ORDERED: CALC200T24 PO (22:48)
[2020-09-02] MEDS ORDERED: AMOX1TAB64 PO (22:48)
[2020-09-02] MEDS ORDERED: LORA-446 PO (22:48)
[2020-09-02] MEDS ORDERED: ACET325T26 PO (22:48)
[2020-09-03] MEDS: HEPARIN 5,000 UNITS/ML, 1ML SQ SCH ×2 (01:00→09:30)
[2020-09-03 01:23] VITALS: BP 134/92
[2020-09-03] MEDS: CHLORDIAZEPOXIDE 25 MG CAPSULE PO PRN (01:44)
[2020-09-03] MEDS ORDERED: CALCIUM CARBONATE 500 MG TAB.CHEW PO ONE (02:00)
[2020-09-03 05:02] LABS: ANION GAP 6 mmol/L (5-15); CALCIUM 8.2 mg/dL (8.5-10.1); CHLORIDE 109 mmol/L (98-107); CREATININE 0.64 mg/dL (0.7-1.3)
[2020-09-03] MEDS: CLINDAMYCIN 300 MG CAPSULE PO SCH ×3 (05:52→16:02)
[2020-09-03 07:25] VITALS: BP 118/70
[2020-09-03] MEDS: LORazepam 1MG TABLET PO SCH ×2 (09:29→16:02)
[2020-09-03] MEDS: NICOTINE 21 MG/24 HR PATCH.TD24 TD SCH (09:31)
[2020-09-03] MEDS: CEFTRIAXONE 1,000 MG in DEXTROSE 5% 50 ML IVPB SCH (09:31)
[2020-09-03] MEDS: ACETAMINOPHEN 325 MG TABLET PO PRN (10:49)
[2020-09-03] MEDS ORDERED: CEFT1FRO2 IV (11:49)
[2020-09-03] MEDS ORDERED: LORA-446 PO (11:56)
[2020-09-03 14:09] VITALS: BP 132/86
== END 2020-09-03 17:00 | DRG 208 ==
LOC: ED 03:24 → EDIP 04:25 → UNDOADMIN 04:25 → CCU 04:25 → 4WST 08-29 14:13
PROVIDERS: ADMIT Family Medicine; ATTEND Internal Medicine
PROC: 5A1945Z Respiratory Ventilation, 24-96 Consecutive Hours (ICD-10-PCS; principal; 2020-08-27)
PROC: 0BH17EZ Insertion of Endotracheal Airway into Trachea, Via Natural or Artificial Opening (ICD-10-PCS; 2020-08-27)
PROC: 0T9B70Z Drainage of Bladder with Drainage Device, Via Natural or Artificial Opening (ICD-10-PCS; 2020-08-27)
PROC: 0CQ7XZZ Repair Tongue, External Approach (ICD-10-PCS; 2020-08-27)
DX: J96.01 Acute respiratory failure with hypoxia (principal); N17.0 Acute kidney failure with tubular necrosis; J69.0 Pneumonitis due to inhalation of food and vomit; G93.41 Metabolic encephalopathy; F10.231 Alcohol dependence with withdrawal delirium; G40.901 Epilepsy, unspecified, not intractable, with status epilepticus; F17.210 Nicotine dependence, cigarettes, uncomplicated; D69.59 Other secondary thrombocytopenia; B86 Scabies; G89.11 Acute pain due to trauma; I10 Essential (primary) hypertension; W18.39XA Other fall on same level, initial encounter; K76.9 Liver disease, unspecified; D73.1 Hypersplenism; D72.829 Elevated white blood cell count, unspecified; S01.01XA Laceration without foreign body of scalp, initial encounter; S01.512A Laceration without foreign body of oral cavity, initial encounter; Z59.0 Homelessness; Y93.89 Activity, other specified; Y92.89 Other specified places as the place of occurrence of the external cause; Y99.8 Other external cause status
CPT/HCPCS: 36415; 36600; 70450; 71045; 72125; 76700; 80048; 80053; 80307; 81001; 82140; 82803; 83735; 84100; 84478; 85025; 85610; 87070; 87081; 87205; 93005; 94002; 94003; 95816; 96361; 96374; 99291; G0378; J0696; J1644; J1953; J2250; J2405; J2704; J3010; J3411; J3475; J3480; P9045; C9113; J0330; J2060; J7030; J7040

== ENCOUNTER 2020-12-14 09:04 | Emergency (ER) | payer MEDICAID ==
[~2020-12-14] VITALS: Ht 182.9 cm; Wt 92.1 kg
[~2020-12-14 09:04] MED LIST changes: +ACET325T26 PO; +AMOX1TAB64 PO; +ASPI-963 PO; +ATOR40TA78 PO; +CALC200T24 PO; +CEFT1FRO2 IV; +CITA20TA9 PO; +FAMO20TA7 PO; +GABA400C PO; +LEVE500T8 PO; +LORA-446 PO; +MIRT7.5T8 PO; +NICO-587 TD; +PANT40GR PO
--- NOTE | 2020-12-14 09:16 | NUR ---
anesthesiology physician assistant: Pt to room from wall at this time.
--- NOTE | 2020-12-14 09:17 | NUR ---
BIBA FROM [facility] C/O ETOH/UNABLE TO AMBULATE, DRINKS " MUCH WHISKEY I CAN GET A DAY", HX SAME, UNSURE IF +DRUGS; NO INTERVENTIONS HEALTHCARE CONSULTING MANAGER PER EMS; PT COOPERATIVE BUT HAS DIFFICULTY FOLLOWING COMMANDS R/T ETOH, MONITORS IN PLACE, CALL LIGHT WITHIN REACH.
--- NOTE | 2020-12-14 10:02 | NUR ---
PT CALMLY SLEEPING ON GURNEY, NAD WITH CHEST RISE/FALL, NO NEEDS AT THIS TIME, CALL LIGHT WITHIN REACH.
--- NOTE | 2020-12-14 10:54 | NUR ---
REPORT GIVEN TO LENA GANDHI.
--- NOTE | 2020-12-14 12:09 | NUR ---
PROVIDED MEAL, PT SITTING UP EATING LUNCH.
[2020-12-14 12:49] VITALS: BP 123/68
== END 2020-12-14 12:58 | disposition left against medical advice (07) ==
LOC: ED 09:25
DX: F10.120 Alcohol abuse with intoxication, uncomplicated (principal); I10 Essential (primary) hypertension; K21.9 Gastro-esophageal reflux disease without esophagitis; Y90.0 Blood alcohol level of less than 20 mg/100 ml
CPT/HCPCS: 99283

== ENCOUNTER 2020-12-16 10:11 | Emergency (ER) | payer MEDICAID ==
[~2020-12-16] VITALS: Ht 180.3 cm; Wt 88.6 kg
--- NOTE | 2020-12-16 10:17 | NUR ---
BIB EMS AFTER BEING FOUND SLEEPING ON SIDEWALK. +ETOH. AOX2. NOT ANSWERING QUESTIONS. VS SIDE LASTER HR 70, BP 133/76, 94% RA. NO SIGNS OF TRAUMA. EXTREMITIES EASILY PERSON FULL ROM. NO ABD/NECK/BACK TENDERNESS ON PALPATION. STERNAL RUB PERFORMED PT AWAKENED AND STATES "HEY YOU GET OFF ON CAUSING ME PAIN OR WHAT?" THEN GOES BACK TO SLEEP. PT SLEEPING ON GURNEY. NADN. MONITORS APPLIED. VSS. WARM BLANKET PROVIDED. ERP DR. GANT AT BEDSIDE FOR EVAL.
--- NOTE | 2020-12-16 11:30 | NUR ---
PT SLEEPING ON BART. NADN. LOPEZ.
--- NOTE | 2020-12-16 12:25 | NUR ---
PT SLEEPING ON BART. NADN. LOPEZ.
--- NOTE | 2020-12-16 13:17 | NUR ---
REPORT GIVEN TO HIRAM JAVED.
--- NOTE | 2020-12-16 13:24 | NUR ---
ASSUMED CARE OF PATIENT. PATIENT RESTING IN ROOM. VS STABLE. CALL LIGHT IN PLACE. WILL CONTINUE TO MONITOR.
--- NOTE | 2020-12-16 14:23 | NUR ---
PT RESTING IN ROOM. PT IS NOT ABLE TO AMBULATE AT THIS TIME. VS STABLE. CALL LIGHT IN PLACE. WILL CONTINUE TO MONITOR.
--- NOTE | 2020-12-16 16:20 | NUR ---
PT AWAKE AND EATING IN ROOM
[2020-12-16 16:41] VITALS: BP 116/55
--- NOTE | 2020-12-16 16:41 | NUR ---
SPOKE WITH DR SEYMOUR, PT TO GET A CT
--- NOTE | 2020-12-16 17:55 | NUR ---
PATIENT AMBULATING WITH STEADY GAIT TO BATHROOM, PATIENT THEN WANDERING HALLWAY, PATIENT STILL CONFUSED, MS MD MACO NOTIFIED. DR SEYMOUR TO REASSESS.
--- NOTE | 2020-12-16 18:01 | NUR ---
REPORT GIVEN TO HIRAM GUAMAN FOR BREAK.
--- NOTE | 2020-12-16 18:45 | NUR ---
DR SEYMOUR IN ROOM. PT TO BE A DC
[2020-12-16] MEDS ORDERED: THIAMINE 100MG TABLET PO ONE (19:00)
[2020-12-16] MEDS ORDERED: THIAMINE 100MG TABLET ONE (19:06)
== END 2020-12-16 19:34 | disposition home or self-care (01) ==
LOC: ED 14:00
DX: F10.220 Alcohol dependence with intoxication, uncomplicated (principal); G92 Toxic encephalopathy; Y90.0 Blood alcohol level of less than 20 mg/100 ml; K21.9 Gastro-esophageal reflux disease without esophagitis; I10 Essential (primary) hypertension
CPT/HCPCS: 70450; 82962; 99285